=== PATIENT | male | born 2000 | race Caucasian/White ===

== ENCOUNTER 2022-10-19 10:58 | Emergency (ER) | payer BC, OTHER ==
[2022-10-19] MEDS ORDERED: ACETAMINOPHEN 500 MG TABLET (FP) PO ONE (11:09)
[2022-10-19 11:15] VITALS: BP 127/64; PULSE 105; RESP 18; TEMP 100.6; BMI 25.8
[2022-10-19] MEDS ORDERED: IBUPROFEN 600 MG TABLET (FP) PO ONE (12:18)
== END 2022-10-19 12:41 | disposition home or self-care (01) ==
LOC: JER 10:58 → EDBD 10:58 → JER 12:41
DX: J09.X2 Influenza due to identified novel influenza A virus with other respiratory manifestations (principal); R50.9 Fever, unspecified; R05.1 Acute cough
CPT/HCPCS: 0241U-QW; 99283-25

== ENCOUNTER 2023-07-02 00:04 | Emergency (ER) | payer BC, OTHER ==
[2023-07-02 00:16] VITALS: BP 123/74; PULSE 78; RESP 18; TEMP 98.1; BMI 27.2
== END 2023-07-02 01:44 | disposition home or self-care (01) ==
LOC: JER 00:04
DX: Z00.00 Encounter for general adult medical examination without abnormal findings (principal); Z02.79 Encounter for issue of other medical certificate; Z57.9 Occupational exposure to unspecified risk factor
CPT/HCPCS: 99281-25

== ENCOUNTER 2023-07-13 18:40 | Emergency (ER) | payer BC, OTHER ==
[2023-07-13 18:51] VITALS: BP 130/78; PULSE 83; RESP 16; TEMP 98.8; BMI 27.2
== END 2023-07-13 19:04 | disposition home or self-care (01) ==
LOC: FER 18:40
DX: Z04.3 Encounter for examination and observation following other accident (principal)
CPT/HCPCS: 99281-25

== ENCOUNTER 2023-09-04 18:59 | Emergency (ER) | payer BC, OTHER ==
[2023-09-04 19:12] VITALS: PULSE 71; RESP 16; TEMP 98.6; BMI 27.2
[2023-09-04 19:52] VITALS: BP 120/78
== END 2023-09-04 19:56 | disposition home or self-care (01) ==
LOC: FER 18:59
DX: T59.91XA Toxic effect of unspecified gases, fumes and vapors, accidental (unintentional), initial encounter (principal)
CPT/HCPCS: 99281-25